=== PATIENT | female | born 1955 | race American Indian/Alaskan Native ===

== ENCOUNTER 2021-03-07 21:48 | Emergency (ER) | payer SELFPAY ==
[2021-03-07 22:26] VITALS: BP 147/91
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
== END 2021-03-08 01:10 ==
LOC: ED 21:48
DX: S69.91XA Unspecified injury of right wrist, hand and finger(s), initial encounter (principal); X58.XXXA Exposure to other specified factors, initial encounter; Y93.89 Activity, other specified; Y92.89 Other specified places as the place of occurrence of the external cause; Y99.8 Other external cause status
CPT/HCPCS: 99284